=== PATIENT | female | born 1990 | race Caucasian/White ===

== ENCOUNTER 2019-07-20 11:00 | Emergency (ER) | payer OTHER, SELFPAY ==
[2019-07-20 11:05] VITALS: BP 124/78; PULSE 111; RESP 16; TEMP 36.2; O2SAT 100
--- NOTE | 2019-07-20 11:26 | ED.GENADULT ---
HPI - General Adult General Chief complaint: Upper Respiratory Infection Stated complaint: st Time Seen by Provider: 07/20/19 11:03 Source: patient Mode of arrival: ambulatory Limitations: no limitations History of Present Illness HPI narrative: Patient is a 28-year-old female who presents to emergency department for evaluation of upper right Tory symptoms for 2 days consistent of sore throat cough congestion. Patient denies dyspnea weakness fever chills nausea vomiting diarrhea. Patient is not taken anything for her symptoms. Mild discomfort of the throat worse with swallowing Related Data Home Medications Medication Instructions Recorded Confirmed albuterol sulfate 2 puff INHALATION Q4-6H PRN 07/20/19 buspirone 15 mg PO BID 07/20/19 ferrous sulfate 325 mg PO BID 07/20/19 fluticasone propionate 1 spray INTRANASAL DAILY 07/20/19 levetiracetam 500 mg PO BID 07/20/19 methylphenidate HCl [Concerta] 18 mg PO DAILY 07/20/19 quetiapine 25 mg PO DAILY 07/20/19 Allergies Allergy/AdvReac Type Severity Reaction Status Date / Time No Known Drug Allergies Allergy Unknown Unknown Verified 07/20/19 11:29 Review of Systems Review of Systems: All systems reviewed & are unremarkable except as noted in HPI and below PMFSH Social History Social History (Updated 07/20/19 @ 11:28 by Marck Kamara PA-C) Smoking status: Never smoker Gender identity (if verbalized by the patient): Female Exam Narrative: Exam Narrative: GENERAL: Well-appearing, well-nourished, and in no acute distress. HEAD: Normocephalic, atraumatic. EYES: PERRLA and EOMI. ENT: Nares clear, no rhinorrhea or epistaxis. Mucous membranes moist. Oropharynx with tonsillar hypertrophy exudate no other lesions. Uvula midline no trismus or drooling NECK: Supple. No adenopathy or masses. CHEST: Clear to auscultation. No respiratory distress. No wheezes rales or rhonchi HEART: Regular rate and rhythm. No murmur heard. EXTREMITIES: Normal range of motion. No edema. SKIN: Warm, dry, no rash. NEURO: No focal deficits. Alert and oriented x3. PSYCH: Normal mood and affect. Course Course Emergency Course: Patient in the room aware of case findings treatment plan and diagnosis Vital Signs Vital signs: Vital Signs Temperature 97.1 F L 07/20/19 11:05 Pulse Rate 111 H 07/20/19 11:05 Respiratory Rate 16 07/20/19 11:05 Blood Pressure 124/78 07/20/19 11:05 Pulse Oximetry 100 07/20/19 11:05 Temperature 97.1 F L 07/20/19 11:05 Pulse Rate 111 H 07/20/19 11:05 Respiratory Rate 16 07/20/19 11:05 Blood Pressure 124/78 07/20/19 11:05 Pulse Oximetry 100 07/20/19 11:05 Medical Decision Making MDM Narrative Medical decision making narrative: Patient in the room afebrile nontoxic-appearing no dyspnea or other concerning findings at this time patient resting comfortably in the room felt appropriate for discharge home agreeing to follow-up as directed with primary care advised to call before going to any offices or seek any further care due to the potential for viral infection patient provided with reasons to return and agrees to do so if symptoms worsen Vital Signs Vital Signs: Vital Signs Temperature 97.1 F L 07/20/19 11:05 Pulse Rate 111 H 07/20/19 11:05 Respiratory Rate 16 07/20/19 11:05 Blood Pressure 124/78 07/20/19 11:05 Pulse Oximetry 100 07/20/19 11:05 Temperature 97.1 F L 07/20/19 11:05 Pulse Rate 111 H 07/20/19 11:05 Respiratory Rate 16 07/20/19 11:05 Blood Pressure 124/78 07/20/19 11:05 Pulse Oximetry 100 07/20/19 11:05 Discharge Plan Discharge Clinical Impression: Upper respiratory infection Patient Disposition: Home, Self-Care Condition: Stable Instructions: Antibiotic Form, Upper Respiratory Infection (ED) Additional Instructions: Follow up with your primary care provider within 1-2 days to set up for reevaluation. Go to ER for shortness of breath, difficulty breath
== END 2019-07-20 12:11 | disposition home or self-care (01) ==
PROVIDERS: Emergency Provider Emergency Medicine
DX: J06.9 Acute upper respiratory infection, unspecified (principal)
CPT/HCPCS: 87081; 87880; 99283